=== PATIENT | male | born 1970 | race African-American/Black ===

== ENCOUNTER 2020-11-26 19:21 | Emergency (ER) | payer OTHER ==
[~2020-11-26] VITALS: Ht 188 cm; Wt 77.1 kg
[2020-11-26] MEDS ORDERED: NORVASC10 MG PO (19:30)
[2020-11-26] MEDS ORDERED: PROAIR HFA8.5 GM INH (19:31)
[2020-11-26 20:11] LABS: ABSOLUTE BASOPHILS 0.1 thou/uL (0.0-0.2); ABSOLUTE EOSINOPHILS 0.5 thou/uL (0.0-0.7); ABSOLUTE LYMPHOCYTES 1.4 thou/uL (0.8-5.3); ABSOLUTE MONOCYTES 0.9 thou/uL (0.0-1.2); ABSOLUTE NEUTROPHILS 6.6 thou/uL (1.6-8.1); BASOPHILS 1.2 %; EOSINOPHILS 5.5 %; HEMATOCRIT 40.9 % (42.0-52.0); LYMPHOCYTES 14.7 %; MCH 30.4 pg (26.0-34.0); MCHC 34.2 g/dL (28.0-37.0); MONOCYTES 9.4 %; MPV 7.5 fl. (7.2-11.1); NUCLEATED RBCS 0 /100WBC; PLATELET COUNT* 319 thou/uL (150-400); POLYS 69.2 %; RDW-CV 13.2 % (10.5-14.5); WBC 9.5 thou/uL (4.0-11.0)
[2020-11-26 20:23] LABS: PROTIME 10.3 Seconds (9.20-11.50)
[2020-11-26 20:24] LABS: CALCIUM 9.1 mg/dL (8.5-10.1); POTASSIUM 3.8 mmol/L (3.5-5.1)
[2020-11-26 20:28] LABS: TOTAL BILIRUBIN 0.3 mg/dL (<0.1-1.0); TOTAL PROTEIN 8.6 g/dL (6.4-8.2)
[2020-11-26 21:46] LABS: URINE BILIRUBIN NEGATIVE (Negative); URINE BLOOD NEGATIVE (Negative); URINE CLARITY CLEAR; URINE COLOR YELLOW; URINE GLUCOSE-RANDOM NEGATIVE (Negative); URINE KETONES NEGATIVE (Negative); URINE LEUKOCYTES-REFLEX NEGATIVE (Negative); URINE NITRITE-REFLEX NEGATIVE (Negative); URINE PROTEIN NEGATIVE (Negative); URINE UROBILINOGEN 0.2 E.U./dl (0.2-1.0)
[2020-11-26 21:54] LABS: AMP/METHAMP Negative (Negative); BARBITURATES Negative (Negative); BENZODIAZEPINES Negative (Negative); COCAINE POSITIVE (Negative); METHADONE Negative (Negative); OPIATES Negative (Negative); PCP Negative (Negative); THC Negative (Negative)
[2020-11-26] MEDS ORDERED: OMEPRAZOLE 20 M20 M1 PO (21:55)
[2020-11-26] MEDS ORDERED: CARAFATE 1 GM TA1 GM PO (21:55)
[2020-11-26 22:21] VITALS: BP 128/84
--- NOTE | 2020-11-27 11:00 | EKG ---
[place] [address] ELECTROCARDIOGRAM REPORT Name: IKE OVALLE Room: [facility]#: [id number] Admission: 11/26/20 Attend Phys: Discharge: 11/26/20 Date of : 68 Date of Service: 11/26/201928 Report #: [id number] THIS REPORT FOR: //name// [facility] ED Test Date: 2020-11-26 Test Time: 19:29:55 Pat Name: IKE OVALLE Department: Room: Gender: Equity Analyst: [place] : 1970 Requested By: Dona Garcia Order Number: [id number] MD: Ramakrishna Thompson Measurements Intervals [place] Rate: 104 P: 70 MN: 185 QRS: 78 QRSD: 95 T: 22 QT: 343 QTc: 452 Interpretive Statements Sinus tachycardia Probable left atrial enlargement Left ventricular hypertrophy No previous ECG available for comparison Electronically Signed On 11-27-2020 10:59:50 CDT by Ramakrishna Thompson [email or web address] <ELECTRONICALLY SIGNED> By: Ramakrishna Thompson MD, [facility] 11/27/20 1059 28 28 Ramakrishna Thompson MD, [facility] /EPI
== END 2020-11-26 22:22 | disposition home or self-care (01) ==
LOC: M.ERS 19:21
PROVIDERS: Personal Emergency Response Attendant
DX: I10 Essential (primary) hypertension (principal); K20.90 Esophagitis, unspecified without bleeding; J45.909 Unspecified asthma, uncomplicated; K21.9 Gastro-esophageal reflux disease without esophagitis; Z79.899 Other long term (current) drug therapy